=== PATIENT | female | born 1935 | race African-American/Black ===

== ENCOUNTER 2017-10-04 11:10 | Inpatient (IN) | payer MEDICARE, OTHER ==
[~2017-10-04] VITALS: Ht 157.5 cm; Wt 60.8 kg
[~2017-10-04 11:10] MED LIST: FURO-152 MT; IBUP-1649 PO
[2017-10-04 11:30] VITALS: BP 104/75
[2017-10-04] MEDS ORDERED: IPRATROPIUM/ALBUTEROL 0.5-3(2.5)MG/3ML NEB HHN PRN (14:45)
[2017-10-04] MEDS ORDERED: CLONIDINE 0.1MG TABLET PO PRN (14:45)
[2017-10-04] MEDS ORDERED: DOCUSATE SODIUM 100MG CAPSULE PO SCH (17:00)
[2017-10-04] MEDS: DOCUSATE SODIUM 100MG CAPSULE PO SCH (17:41)
[2017-10-04] MEDS: PREDNISONE 20MG TABLET PO SCH (17:41)
[2017-10-04 20:00] VITALS: BP 154/80
[2017-10-04] MEDS: IPRATROPIUM/ALBUTEROL 0.5-3(2.5)MG/3ML NEB HHN SCH ×2 (20:25→21:11)
[2017-10-04] MEDS: ENOXAPARIN 40MG/0.4ML SYR SUBCUT SCH (20:33)
[2017-10-04] MEDS: POLYETHYLENE GLYCOL 3350 (17GM) 1 DOSE PACK PO SCH (20:33)
[2017-10-04] MEDS ORDERED: FUROSEMIDE 40MG/4ML VIAL IVP SCH (22:00)
[2017-10-05] MEDS: IPRATROPIUM/ALBUTEROL 0.5-3(2.5)MG/3ML NEB HHN SCH ×6 (00:03→20:34)
[2017-10-05] MEDS: GUAIFENESIN 200MG/10ML SUGAR FREE UDC PO PRN ×3 (02:26→20:25)
[2017-10-05] MEDS: ACETAMINOPHEN 500MG TABLET PO PRN ×2 (05:33→21:42)
[2017-10-05] MEDS: PANTOPRAZOLE 40MG DR TABLET PO SCH (06:02)
[2017-10-05 07:29] LABS: BASOPHILS % 0.2 % (0.0-2.0); EOSINOPHILS % 0.1 % (0.0-5.0); HEMATOCRIT. 36.8 % (36.0-48.0); HEMOGLOBIN. 12.1 g/dL (12.0-16.0); LYMPHOCYTES % 12.9 % (20.0-50.0); MEAN CORPUSCULAR HEMOGLOBIN 33.3 pg (28.0-32.0); MEAN CORPUSCULAR VOLUME 101.5 fL (81.0-99.0); MEAN PLATELET VOLUME 7.7 fl (7.4-10.4); MONOCYTES % 13.5 % (2.0-8.0); NEUTROPHILS % 73.3 % (40.0-76.0); PLATELET 237 x1000/uL (130-400); RED BLOOD CELL COUNT 3.63 mill/uL (4.2-5.4); RED CELL DISTRIBUTION WIDTH 16.6 % (11.6-14.6)
[2017-10-05 07:48] LABS: CHLORIDE 96 mEq/L (98-107)
[2017-10-05 08:00] VITALS: BP 127/68
[2017-10-05] MEDS ORDERED: FOLIC ACID 0.4MG TABLET PO SCH (09:00)
[2017-10-05] MEDS: MAGNESIUM/ALUMINUM HYDROXIDE/SIMETHICONE 30ML UDC PO SCH (09:06)
[2017-10-05] MEDS: DOCUSATE SODIUM 100MG CAPSULE PO SCH ×2 (09:06→17:44)
[2017-10-05] MEDS: PREDNISONE 20MG TABLET PO SCH (09:07)
[2017-10-05] MEDS: FUROSEMIDE 40MG/4ML VIAL IVP SCH (09:07)
[2017-10-05] MEDS: THIAMINE HCL 100MG TABLET PO SCH (09:07)
[2017-10-05] MEDS: FOLIC ACID 1MG TABLET PO SCH (09:07)
[2017-10-05 12:52] LABS: CLARITY URINE CLEAR (CLEAR); KETONES URINE NEGATIVE (NEGATIVE); LEUKOCYTE ESTERASE URINE NEGATIVE (NEGATIVE); NITRITE URINE NEGATIVE (NEGATIVE); OCCULT BLOOD URINE NEGATIVE (NEGATIVE); PROTEIN URINE NEGATIVE (NEGATIVE); SPECIFIC GRAVITY URINE 1.009 (1.005-1.030); UROBILINOGEN URINE 0.2 E.U./dL (0.2-1.0)
[2017-10-05 12:58] LABS: COLOR URINE PALE YELLOW (YELLOW)
[2017-10-05 20:00] VITALS: BP 134/63
[2017-10-05] MEDS: POLYETHYLENE GLYCOL 3350 (17GM) 1 DOSE PACK PO SCH (20:24)
[2017-10-05] MEDS: ENOXAPARIN 40MG/0.4ML SYR SUBCUT SCH (20:25)
[2017-10-06] MEDS: IPRATROPIUM/ALBUTEROL 0.5-3(2.5)MG/3ML NEB HHN SCH ×6 (00:19→20:25)
[2017-10-06] MEDS: GUAIFENESIN 200MG/10ML SUGAR FREE UDC PO PRN ×2 (04:59→22:40)
[2017-10-06] MEDS: PANTOPRAZOLE 40MG DR TABLET PO SCH (06:18)
[2017-10-06 07:14] LABS: HEMATOCRIT. 37.7 % (36.0-48.0); HEMOGLOBIN. 12.4 g/dL (12.0-16.0); MEAN CORPUSCULAR HEMOGLOBIN 33.6 pg (28.0-32.0); MEAN CORPUSCULAR VOLUME 102.4 fL (81.0-99.0); MEAN PLATELET VOLUME 7.4 fl (7.4-10.4); PLATELET 227 x1000/uL (130-400); RED BLOOD CELL COUNT 3.68 mill/uL (4.2-5.4); RED CELL DISTRIBUTION WIDTH 16.6 % (11.6-14.6)
[2017-10-06 07:27] LABS: CHLORIDE 94 mEq/L (98-107)
[2017-10-06 07:47] LABS: PHOSPHORUS 3.8 mg/dL (2.5-4.9)
[2017-10-06 07:48] LABS: TOTAL IRON BINDING CAPACITY 339 ug/dL (250-450)
[2017-10-06 08:00] VITALS: BP 124/103
[2017-10-06] MEDS: DOCUSATE SODIUM 100MG CAPSULE PO SCH ×2 (09:10→17:56)
[2017-10-06] MEDS: PREDNISONE 20MG TABLET PO SCH (09:10)
[2017-10-06] MEDS: FUROSEMIDE 40MG/4ML VIAL IVP SCH (09:10)
[2017-10-06] MEDS: THIAMINE HCL 100MG TABLET PO SCH (09:10)
[2017-10-06] MEDS: FOLIC ACID 1MG TABLET PO SCH (09:10)
[2017-10-06] MEDS: MAGNESIUM/ALUMINUM HYDROXIDE/SIMETHICONE 30ML UDC PO SCH (09:10)
[2017-10-06 11:11] LABS: PLATELET ESTIMATE NORMAL
[2017-10-06 14:30] LABS: FOLIC ACID (FOLATE) SERUM 17.7 ng/mL (>5.38)
[2017-10-06 20:00] VITALS: BP 120/49
[2017-10-06] MEDS: TRAVATAN Z 0.004% OP SCH (21:13)
[2017-10-06] MEDS: POLYETHYLENE GLYCOL 3350 (17GM) 1 DOSE PACK PO SCH (21:13)
[2017-10-06] MEDS: OXYBUTYNIN CHLORIDE 5MG TABLET PO SCH (21:13)
[2017-10-06] MEDS: ENOXAPARIN 40MG/0.4ML SYR SUBCUT SCH (21:14)
[2017-10-06] MEDS: ACETAMINOPHEN 500MG TABLET PO PRN (22:40)
[2017-10-07] MEDS: IPRATROPIUM/ALBUTEROL 0.5-3(2.5)MG/3ML NEB HHN SCH ×4 (02:00→12:43)
[2017-10-07 08:00] VITALS: BP 116/67
[2017-10-07] MEDS ORDERED: FAMOTIDINE 20MG TABLET PO SCH (09:00)
[2017-10-07] MEDS: THIAMINE HCL 100MG TABLET PO SCH (09:38)
[2017-10-07] MEDS: OXYBUTYNIN CHLORIDE 5MG TABLET PO SCH ×2 (09:38→20:49)
[2017-10-07] MEDS: DOCUSATE SODIUM 100MG CAPSULE PO SCH ×2 (09:38→18:50)
[2017-10-07] MEDS: FUROSEMIDE 40MG TABLET PO SCH (09:38)
[2017-10-07] MEDS: FOLIC ACID 1MG TABLET PO SCH (09:38)
[2017-10-07] MEDS: PREDNISONE 20MG TABLET PO SCH (09:38)
[2017-10-07] MEDS: MAGNESIUM/ALUMINUM HYDROXIDE/SIMETHICONE 30ML UDC PO SCH (09:39)
[2017-10-07] MEDS: ACETAMINOPHEN 500MG TABLET PO PRN ×2 (15:01→19:42)
[2017-10-07] MEDS ORDERED: ALBUTEROL 6.7GM HFA INHALER ORI PRN (16:00)
[2017-10-07] MEDS: UMECLIDINIUM BROMIDE 1 INH BLST.W.DEV IH SCH (16:00)
[2017-10-07] MEDS: FLUTICASONE/VILANTEROL 200-25 BLST.W.DEV ORI SCH (16:00)
[2017-10-07 20:00] VITALS: BP 119/64
[2017-10-07] MEDS: ENOXAPARIN 40MG/0.4ML SYR SUBCUT SCH (20:49)
[2017-10-07] MEDS: TRAVATAN Z 0.004% OP SCH (20:49)
[2017-10-07] MEDS: POLYETHYLENE GLYCOL 3350 (17GM) 1 DOSE PACK PO SCH (20:49)
[2017-10-08 08:00] VITALS: BP 132/63
[2017-10-08 08:02] VITALS: BP 132/63
[2017-10-08] MEDS: OXYBUTYNIN CHLORIDE 5MG TABLET PO SCH (08:48)
[2017-10-08] MEDS: MAGNESIUM/ALUMINUM HYDROXIDE/SIMETHICONE 30ML UDC PO SCH (08:48)
[2017-10-08] MEDS: FOLIC ACID 1MG TABLET PO SCH (08:48)
[2017-10-08] MEDS: PREDNISONE 20MG TABLET PO SCH (08:48)
[2017-10-08] MEDS: FUROSEMIDE 40MG TABLET PO SCH (08:48)
[2017-10-08] MEDS: DOCUSATE SODIUM 100MG CAPSULE PO SCH (08:49)
[2017-10-08] MEDS: THIAMINE HCL 100MG TABLET PO SCH (08:49)
[2017-10-08] MEDS: ACETAMINOPHEN 500MG TABLET PO PRN (08:49)
[2017-10-08] MEDS: FLUTICASONE/VILANTEROL 200-25 BLST.W.DEV ORI SCH (08:50)
[2017-10-08] MEDS: UMECLIDINIUM BROMIDE 1 INH BLST.W.DEV IH SCH (08:50)
[2017-10-08] MEDS ORDERED: FAMOTIDINE 20MG TABLET PO SCH (09:00)
[2017-10-08 10:33] VITALS: BP 132/63
[2017-10-14 04:09] LABS: 25-HYDROXY VITAMIN D3 33 ng/mL (.)
== END 2017-10-08 17:27 | disposition home health service (06) | DRG 947 ==
PROVIDERS: ADMIT Physical Medicine & Rehabilitation Spinal Cord Injury Medicine; ATTEND Internal Medicine Pulmonary Disease
DX: R53.81 Other malaise (principal); J96.21 Acute and chronic respiratory failure with hypoxia; J96.22 Acute and chronic respiratory failure with hypercapnia; J44.1 Chronic obstructive pulmonary disease with (acute) exacerbation; I50.30 Unspecified diastolic (congestive) heart failure; M17.0 Bilateral primary osteoarthritis of knee; I11.0 Hypertensive heart disease with heart failure; F41.9 Anxiety disorder, unspecified; G62.9 Polyneuropathy, unspecified; R26.9 Unspecified abnormalities of gait and mobility; M79.609 Pain in unspecified limb; F10.11 Alcohol abuse, in remission; R20.0 Anesthesia of skin; Z60.2 Problems related to living alone; Z99.81 Dependence on supplemental oxygen; Z92.3 Personal history of irradiation; Z92.21 Personal history of antineoplastic chemotherapy; Z85.44 Personal history of malignant neoplasm of other female genital organs; Z87.891 Personal history of nicotine dependence; Z88.0 Allergy status to penicillin; Z80.9 Family history of malignant neoplasm, unspecified; Z80.8 Family history of malignant neoplasm of other organs or systems
CPT/HCPCS: 36415; 80048; 80053; 81003; 82306; 82607; 82728; 82746; 83036; 83540; 83550; 83735; 84100; 84134; 84443; 84630; 85025; 87086; 93970; 94640; 97110; 97116; 97162; 97166; 97530; 97535; J1650; J1940; J7512; J7611; J7620

== ENCOUNTER 2018-03-06 14:09 | Inpatient (IN) | payer MEDICARE, OTHER ==
[~2018-03-06] VITALS: Ht 157.5 cm; Wt 59.0 kg
[~2018-03-06 14:09] MED LIST changes: +ALBU90AE INH; +TIOT18CA3 INH
[2018-03-06 15:51] LABS: BASOPHILS % 1.1 % (0.0-2.0); HEMATOCRIT. 35.5 % (36.0-48.0); HEMOGLOBIN. 11.6 g/dL (12.0-16.0); LYMPHOCYTES % 32.2 % (20.0-50.0); MEAN CORPUSCULAR HEMOGLOBIN 35.2 pg (28.0-32.0); MEAN CORPUSCULAR VOLUME 107.5 fL (81.0-99.0); MEAN PLATELET VOLUME 7.9 fl (7.4-10.4); MONOCYTES % 9.7 % (2.0-8.0); PLATELET 214 x1000/uL (130-400); RED CELL DISTRIBUTION WIDTH 15.2 % (11.6-14.6)
[2018-03-06 15:53] LABS: CHLORIDE 101 mEq/L (98-107)
[2018-03-06 19:47] LABS: CLARITY URINE CLEAR (CLEAR); COLOR URINE YELLOW (YELLOW); KETONES URINE NEGATIVE (NEGATIVE); LEUKOCYTE ESTERASE URINE TRACE (NEGATIVE); NITRITE URINE NEGATIVE (NEGATIVE); OCCULT BLOOD URINE NEGATIVE (NEGATIVE); PH URINE 7.5 (4.5-8.0); PROTEIN URINE NEGATIVE (NEGATIVE); SPECIFIC GRAVITY URINE 1.009 (1.005-1.030); UROBILINOGEN URINE 0.2 E.U./dL (0.2-1.0)
[2018-03-06 20:15] VITALS: BP 125/69
[2018-03-06] MEDS ORDERED: IPRATROPIUM/ALBUTEROL 0.5-3(2.5)MG/3ML NEB INH PRN (20:45)
[2018-03-06] MEDS ORDERED: CYCLOBENZAPRINE 10MG TABLET PO PRN (20:45)
[2018-03-06] MEDS ORDERED: FUROSEMIDE 20MG/2ML VIAL IVP SCH (21:45)
[2018-03-06 21:54] VITALS: BP 125/69
[2018-03-06] MEDS: ACETAMINOPHEN 325MG TABLET PO PRN (22:43)
[2018-03-06] MEDS: ENOXAPARIN 40MG/0.4ML SYR SUBCUT SCH ×2 (22:44→22:59)
[2018-03-06] MEDS: POTASSIUM CHLORIDE 20MEQ TABLET SR PO SCH ×2 (22:44→22:59)
[2018-03-06] MEDS: FAMOTIDINE 20MG TABLET PO SCH (22:44)
[2018-03-06] MEDS: SODIUM CHLORIDE 0.9% INJ 3ML FLUSH IVF SCH (22:45)
[2018-03-07] VITALS: BP 129/71
[2018-03-07] MEDS: IPRATROPIUM/ALBUTEROL 0.5-3(2.5)MG/3ML NEB HHN SCH ×5 (00:54→20:55)
[2018-03-07 04:00] VITALS: BP 117/70
[2018-03-07] MEDS: ACETAMINOPHEN 325MG TABLET PO PRN ×2 (06:05→21:13)
[2018-03-07] MEDS: SODIUM CHLORIDE 0.9% INJ 3ML FLUSH IVF SCH ×3 (06:05→21:05)
[2018-03-07 07:47] LABS: BASOPHILS % 1.1 % (0.0-2.0); EOSINOPHILS % 5.7 % (0.0-5.0); HEMATOCRIT. 35.4 % (36.0-48.0); HEMOGLOBIN. 11.5 g/dL (12.0-16.0); LYMPHOCYTES % 39.1 % (20.0-50.0); MEAN CORPUSCULAR HEMOGLOBIN 34.6 pg (28.0-32.0); MEAN CORPUSCULAR VOLUME 106.7 fL (81.0-99.0); MEAN PLATELET VOLUME 7.8 fl (7.4-10.4); MONOCYTES % 13.1 % (2.0-8.0); PLATELET 229 x1000/uL (130-400); RED BLOOD CELL COUNT 3.32 mill/uL (4.2-5.4); RED CELL DISTRIBUTION WIDTH 15.5 % (11.6-14.6)
[2018-03-07 08:00] VITALS: BP 130/70
[2018-03-07 08:12] LABS: CHLORIDE 102 mEq/L (98-107)
[2018-03-07 08:40] LABS: BG BASE EXCESS 4.8 mmol/L (-2.0-2.0); BG CARBOXYHEMOGLOBIN 0.9 % (0.5-1.5); BG DEOXYHEMOGLOBIN 6.4 % (0.0-5.0); BG FRACTION INSPIRED OXYGEN 24; BG HCO3 ACT 30.5 mmol/L (22.0-26.0); BG METHEMOGLOBIN 0.3 % (0.0-1.5); BG OXYGEN SATURATION 93.5 % (92.0-98.5); BG OXYHEMOGLOBIN 92.4 % (94.0-97.0); BG PCO2 50.5 mmHg (35.0-45.0); BG PH 7.399 (7.350-7.450); BG PO2 72.9 mmHg (75.0-100.0); BG SAMPLE SITE RIGHT BRACHIAL; BG TOTAL HEMOGLOBIN 10.9 g/dL (12.0-18.0); BG VENT MODE NASAL CANNULA
[2018-03-07 08:46] LABS: VITAMIN B12 SERUM 825 pg/mL (211-911)
[2018-03-07 08:48] LABS: FOLIC ACID (FOLATE) SERUM > 20.00 ng/mL (>5.38)
[2018-03-07] MEDS: FUROSEMIDE 20MG/2ML VIAL IVP SCH (08:52)
[2018-03-07] MEDS: ENOXAPARIN 40MG/0.4ML SYR SUBCUT SCH (08:53)
[2018-03-07] MEDS: POTASSIUM CHLORIDE 20MEQ TABLET SR PO SCH (08:53)
[2018-03-07] MEDS: FAMOTIDINE 20MG TABLET PO SCH (08:53)
[2018-03-07 12:00] VITALS: BP 109/61
[2018-03-07] MEDS ORDERED: METHYLPREDNISOLONE SOD SUCC 125 MG/2 ML VIAL IV ONE (15:30)
[2018-03-07] MEDS ORDERED: METHYLPREDNISOLONE SOD SUCC 40 MG/ML VIAL IV SCH (15:30)
[2018-03-07] MEDS ORDERED: IPRATROPIUM/ALBUTEROL 0.5-3(2.5)MG/3ML NEB HHN PRN (15:30)
[2018-03-07 16:00] VITALS: BP 112/57
[2018-03-07 20:00] VITALS: BP 124/70
[2018-03-07] MEDS: OMEPRAZOLE 20MG CAPSULE EXTENDED RELEASE PO SCH (21:05)
[2018-03-08] VITALS: BP 120/78
[2018-03-08] MEDS: IPRATROPIUM/ALBUTEROL 0.5-3(2.5)MG/3ML NEB INH PRN ×2 (01:11→04:55)
[2018-03-08] MEDS: ACETAMINOPHEN 325MG TABLET PO PRN ×3 (02:16→21:06)
[2018-03-08 04:13] VITALS: BP 106/54
[2018-03-08] MEDS: SODIUM CHLORIDE 0.9% INJ 3ML FLUSH IVF SCH (05:51)
[2018-03-08] MEDS: OMEPRAZOLE 20MG CAPSULE EXTENDED RELEASE PO SCH ×2 (05:51→21:07)
[2018-03-08 07:09] LABS: CHLORIDE 102 mEq/L (98-107)
[2018-03-08 07:31] LABS: BASOPHILS % 0.7 % (0.0-2.0); EOSINOPHILS % 6.2 % (0.0-5.0); HEMATOCRIT. 29.3 % (36.0-48.0); HEMOGLOBIN. 9.8 g/dL (12.0-16.0); LYMPHOCYTES % 42.4 % (20.0-50.0); MEAN CORPUSCULAR HEMOGLOBIN 35.6 pg (28.0-32.0); MEAN CORPUSCULAR VOLUME 106.7 fL (81.0-99.0); MEAN PLATELET VOLUME 7.7 fl (7.4-10.4); MONOCYTES % 14.2 % (2.0-8.0); NEUTROPHILS % 36.5 % (40.0-76.0); PLATELET 178 x1000/uL (130-400); RED BLOOD CELL COUNT 2.75 mill/uL (4.2-5.4); RED CELL DISTRIBUTION WIDTH 15.1 % (11.6-14.6)
[2018-03-08 08:00] VITALS: BP 109/59
[2018-03-08] MEDS: IPRATROPIUM/ALBUTEROL 0.5-3(2.5)MG/3ML NEB HHN SCH ×3 (08:51→16:48)
[2018-03-08] MEDS: FUROSEMIDE 20MG/2ML VIAL IVP SCH (09:10)
[2018-03-08] MEDS: POTASSIUM CHLORIDE 20MEQ TABLET SR PO SCH (09:10)
[2018-03-08] MEDS: ENOXAPARIN 40MG/0.4ML SYR SUBCUT SCH (09:13)
[2018-03-08 12:00] VITALS: BP 103/45
[2018-03-08 16:00] VITALS: BP 126/67
[2018-03-08 20:00] VITALS: BP 104/54
[2018-03-09] VITALS: BP 111/53
[2018-03-09] MEDS: IPRATROPIUM/ALBUTEROL 0.5-3(2.5)MG/3ML NEB HHN SCH ×4 (01:44→20:51)
[2018-03-09 04:00] VITALS: BP 103/55
[2018-03-09] MEDS: SODIUM CHLORIDE 0.9% INJ 3ML FLUSH IVF SCH (06:00)
[2018-03-09] MEDS: OMEPRAZOLE 20MG CAPSULE EXTENDED RELEASE PO SCH ×2 (06:53→22:33)
[2018-03-09] MEDS: ACETAMINOPHEN 325MG TABLET PO PRN ×3 (07:08→22:33)
[2018-03-09 08:00] VITALS: BP 107/59
[2018-03-09] MEDS: FUROSEMIDE 20MG/2ML VIAL IVP SCH (10:24)
[2018-03-09] MEDS: ENOXAPARIN 40MG/0.4ML SYR SUBCUT SCH (10:25)
[2018-03-09] MEDS: POTASSIUM CHLORIDE 20MEQ TABLET SR PO SCH (10:25)
[2018-03-09 14:33] VITALS: BP 90/50
[2018-03-09 16:00] VITALS: BP 113/50
[2018-03-09 20:00] VITALS: BP 97/61
[2018-03-10] VITALS: BP 115/66
[2018-03-10] MEDS: IPRATROPIUM/ALBUTEROL 0.5-3(2.5)MG/3ML NEB HHN SCH ×5 (01:00→20:43)
[2018-03-10] MEDS: ACETAMINOPHEN 325MG TABLET PO PRN ×2 (02:42→06:55)
[2018-03-10 04:00] VITALS: BP 108/61
[2018-03-10] MEDS: OMEPRAZOLE 20MG CAPSULE EXTENDED RELEASE PO SCH ×2 (06:56→21:05)
[2018-03-10] MEDS: SODIUM CHLORIDE 0.9% INJ 3ML FLUSH IVF SCH ×2 (06:56→21:06)
[2018-03-10 08:00] VITALS: BP 126/69
[2018-03-10] MEDS: FUROSEMIDE 20MG/2ML VIAL IVP SCH (10:15)
[2018-03-10] MEDS: ENOXAPARIN 40MG/0.4ML SYR SUBCUT SCH (10:15)
[2018-03-10] MEDS: POTASSIUM CHLORIDE 20MEQ TABLET SR PO SCH (10:15)
[2018-03-10] MEDS: IBUPROFEN 600MG TABLET PO PRN (11:52)
[2018-03-10 12:00] VITALS: BP 127/64
[2018-03-10 16:00] VITALS: BP 119/51
[2018-03-10 20:00] VITALS: BP 119/65
[2018-03-10] MEDS ORDERED: FUROSEMIDE 20MG/2ML VIAL IVP NR (20:00)
[2018-03-11] VITALS: BP 123/64
[2018-03-11 04:00] VITALS: BP 111/53
[2018-03-11] MEDS: IPRATROPIUM/ALBUTEROL 0.5-3(2.5)MG/3ML NEB HHN SCH ×6 (04:31→20:08)
[2018-03-11 05:32] LABS: CHLORIDE 99 mEq/L (98-107)
[2018-03-11 05:41] LABS: PHOSPHORUS 4.5 mg/dL (2.5-4.9)
[2018-03-11 05:50] LABS: BASOPHILS % 0.7 % (0.0-2.0); EOSINOPHILS % 7.9 % (0.0-5.0); HEMATOCRIT. 31.9 % (36.0-48.0); HEMOGLOBIN. 10.4 g/dL (12.0-16.0); LYMPHOCYTES % 39.5 % (20.0-50.0); MEAN CORPUSCULAR HEMOGLOBIN 35.3 pg (28.0-32.0); MEAN CORPUSCULAR VOLUME 107.9 fL (81.0-99.0); MEAN PLATELET VOLUME 7.8 fl (7.4-10.4); MONOCYTES % 14.6 % (2.0-8.0); NEUTROPHILS % 37.3 % (40.0-76.0); PLATELET 184 x1000/uL (130-400); RED BLOOD CELL COUNT 2.95 mill/uL (4.2-5.4); RED CELL DISTRIBUTION WIDTH 14.4 % (11.6-14.6)
[2018-03-11] MEDS: ACETAMINOPHEN 325MG TABLET PO PRN ×2 (06:23→21:16)
[2018-03-11] MEDS: OMEPRAZOLE 20MG CAPSULE EXTENDED RELEASE PO SCH ×2 (06:23→21:14)
[2018-03-11] MEDS: SODIUM CHLORIDE 0.9% INJ 3ML FLUSH IVF SCH ×3 (06:23→21:16)
[2018-03-11 08:00] VITALS: BP 102/62
[2018-03-11] MEDS: FUROSEMIDE 40MG/4ML VIAL IVP SCH (08:21)
[2018-03-11] MEDS: ENOXAPARIN 40MG/0.4ML SYR SUBCUT SCH (08:21)
[2018-03-11] MEDS: POTASSIUM CHLORIDE 20MEQ TABLET SR PO SCH (08:21)
[2018-03-11 12:00] VITALS: BP 100/53
[2018-03-11 16:00] VITALS: BP 119/64
[2018-03-11 20:00] VITALS: BP 117/55
[2018-03-12] VITALS: BP 115/63
[2018-03-12] MEDS: IPRATROPIUM/ALBUTEROL 0.5-3(2.5)MG/3ML NEB HHN SCH ×6 (00:40→20:50)
[2018-03-12 04:00] VITALS: BP 106/62
[2018-03-12] MEDS: OMEPRAZOLE 20MG CAPSULE EXTENDED RELEASE PO SCH ×2 (05:56→20:02)
[2018-03-12] MEDS: SODIUM CHLORIDE 0.9% INJ 3ML FLUSH IVF SCH ×3 (05:56→22:28)
[2018-03-12] MEDS: ACETAMINOPHEN 325MG TABLET PO PRN ×2 (06:00→19:57)
[2018-03-12 08:00] VITALS: BP 104/53
[2018-03-12] MEDS: ENOXAPARIN 40MG/0.4ML SYR SUBCUT SCH (08:21)
[2018-03-12] MEDS: FUROSEMIDE 40MG/4ML VIAL IVP SCH (08:21)
[2018-03-12] MEDS: POTASSIUM CHLORIDE 20MEQ TABLET SR PO SCH (08:21)
[2018-03-12] MEDS: IBUPROFEN 600MG TABLET PO PRN (08:21)
[2018-03-12 11:23] LABS: BG BASE EXCESS 11.2 mmol/L (-2.0-2.0); BG CARBOXYHEMOGLOBIN 1.2 % (0.5-1.5); BG DEOXYHEMOGLOBIN 16.8 % (0.0-5.0); BG FRACTION INSPIRED OXYGEN 21; BG HCO3 ACT 37.9 mmol/L (22.0-26.0); BG METHEMOGLOBIN 0.1 % (0.0-1.5); BG OXYHEMOGLOBIN 81.9 % (94.0-97.0); BG PCO2 61.4 mmHg (35.0-45.0); BG PH 7.408 (7.350-7.450); BG PO2 48.4 mmHg (75.0-100.0); BG SAMPLE SITE RIGHT BRACHIAL; BG TOTAL HEMOGLOBIN 11.1 g/dL (12.0-18.0); BG VENT MODE ROOM AIR
[2018-03-12 12:00] VITALS: BP 110/54
[2018-03-12 16:00] VITALS: BP 114/61
[2018-03-12 20:29] VITALS: BP 119/64
[2018-03-13] VITALS (7 sets, daily range): BP systolic 103–119; BP diastolic 55–70
[2018-03-13] MEDS: IPRATROPIUM/ALBUTEROL 0.5-3(2.5)MG/3ML NEB HHN SCH ×6 (00:38→20:52)
[2018-03-13] MEDS: ACETAMINOPHEN 325MG TABLET PO PRN ×2 (04:25→21:18)
[2018-03-13] MEDS: SODIUM CHLORIDE 0.9% INJ 3ML FLUSH IVF SCH ×3 (06:34→21:18)
[2018-03-13] MEDS: OMEPRAZOLE 20MG CAPSULE EXTENDED RELEASE PO SCH ×2 (06:34→21:18)
[2018-03-13] MEDS: POTASSIUM CHLORIDE 20MEQ TABLET SR PO SCH (08:09)
[2018-03-13] MEDS: IBUPROFEN 600MG TABLET PO PRN (08:09)
[2018-03-13] MEDS: FUROSEMIDE 40MG/4ML VIAL IVP SCH (08:09)
[2018-03-13] MEDS: ENOXAPARIN 40MG/0.4ML SYR SUBCUT SCH (08:10)
[2018-03-13 10:38] LABS: BG BASE EXCESS 9.6 mmol/L (-2.0-2.0); BG CARBOXYHEMOGLOBIN 0.9 % (0.5-1.5); BG DEOXYHEMOGLOBIN 4.8 % (0.0-5.0); BG FRACTION INSPIRED OXYGEN 28; BG HCO3 ACT 36.3 mmol/L (22.0-26.0); BG METHEMOGLOBIN 0.3 % (0.0-1.5); BG OXYGEN SATURATION 95.1 % (92.0-98.5); BG PCO2 60.3 mmHg (35.0-45.0); BG PH 7.397 (7.350-7.450); BG PO2 81.3 mmHg (75.0-100.0); BG SAMPLE SITE RIGHT BRACHIAL; BG TOTAL HEMOGLOBIN 11.1 g/dL (12.0-18.0); BG VENT MODE NASAL CANNULA
[2018-03-13] MEDS ORDERED: LIDOCAINE HCL/PF 1% 2ML VIAL ONE (15:01)
== END 2018-03-13 22:31 | disposition home or self-care (01) | DRG 291 ==
LOC: ER 14:32 → 5WST 15:27 → EDBEDREQTM 15:29 → EDBEDREQ 15:29 → ENRESERV 19:03 → CANRESERV 19:03
PROVIDERS: ADMIT Ophthalmology; ATTEND Ophthalmology
DX: I11.0 Hypertensive heart disease with heart failure (principal); J96.21 Acute and chronic respiratory failure with hypoxia; J96.22 Acute and chronic respiratory failure with hypercapnia; J44.1 Chronic obstructive pulmonary disease with (acute) exacerbation; I50.33 Acute on chronic diastolic (congestive) heart failure; E78.5 Hyperlipidemia, unspecified; I27.29 Other secondary pulmonary hypertension; I27.81 Cor pulmonale (chronic); Z87.891 Personal history of nicotine dependence; Z90.710 Acquired absence of both cervix and uterus; Z99.81 Dependence on supplemental oxygen; Z88.0 Allergy status to penicillin; Z92.3 Personal history of irradiation; G89.29 Other chronic pain; M54.9 Dorsalgia, unspecified; C51.9 Malignant neoplasm of vulva, unspecified
CPT/HCPCS: 36415; 36600; 71045; 80048; 82375; 82607; 82746; 82805; 83735; 83880; 84100; 84443; 84484; 93005; 93306; 93970; 94640; 96374; 97116; 97162; 97530; 99291; J1650; J1940; J3490; J7620